=== PATIENT | female | born 1985 | race African-American/Black ===

== ENCOUNTER 2016-12-31 07:31 | Emergency (ER) | payer MEDICARE ==
[~2016-12-31] VITALS: Ht 149.9 cm; Wt 59.0 kg
[2016-12-31 07:35] VITALS: BP 130/76
[2016-12-31] MEDS ORDERED: HYDR-2666 PO (07:47)
[2016-12-31] MEDS ORDERED: PENI500T PO (07:47)
[2016-12-31] MEDS ORDERED: BENZ12SO MM (07:47)
--- NOTE | 2016-12-31 07:47 | PHYS DOC ---
Past Medical History Past Surgical History: Additional Past Surgical Histo: 4 C-sections Smoking: Cigarettes, Greater than 1 pack/day Alcohol Use: None Drug Use: None Adult General Chief Complaint Chief Complaint: DENTAL PROBLEM HPI HPI Patient is a pleasant 31-year-old otherwise healthy female with a three-hour history of tooth pain that began at rest. She has a history of dental caries in dentition problems secondary to fact she told the candy she's had prior root canal swelling the past and many fillings. Her pain is described as throbbing worse with movement of her jaw which is changed and increased with hot or cold foods. She denies any anterior neck swelling facial swelling or change in voice. She denies any trauma from speaking. Patient has had new or URI symptoms no fevers no chills no cough. She does several issue with a dentist but is looking for some symptomatically for her throbbing pain which she describes a 7 of 10 at this time. She is taking BC powders with mild improvement of her symptoms. Review of Systems Review of Systems Constitutional: Denies fever or chills [] Eyes: Denies change in visual acuity, redness, or eye pain [] HENT: Denies nasal congestion or sore throat [] Respiratory: Denies cough or shortness of breath [] Cardiovascular: No additional information not addressed in HPI [] Integument: Denies rash or skin lesions [] Neurologic: Denies headache, focal weakness or sensory changes [] Physical Exam Physical Exam Constitutional: Well developed, well nourished, uncomfortable but nontoxic in appearance HENT: Normocephalic, atraumatic, bilateral external ears normal, oropharynx moist, a status multiple areas of dental caries with significant enamel erosions to the occlusal surfaces as well as buccolingual services of each tooth. She significant soft tissue tenderness along the gumline supporting tooth #1415 with no obvious fluctuance patient is no buccal or lingual swelling or soft tissue signs of cellulitis. Oropharynx is otherwise clear no evidence of peritonsillar abscess [] Eyes: PERRLA, EOMI, conjunctiva normal, no discharge. [] Neck: Normal range of motion, no tenderness, supple, no stridor. [] Cardiovascular:Heart rate regular rhythm, no murmur [] Lungs & Thorax: Bilateral breath sounds clear to auscultation [] Skin: Warm, dry, no erythema, no rash. [] Neurologic: Alert and oriented X 3, normal motor function, EKG EKG [] Radiology/Procedures Radiology/Procedures [] Course & Med Decision Making Course & Med Decision Making Pertinent Labs and Imaging studies reviewed. (See chart for details) [Patient with clear evidence of dental caries and gingivitis without gingival inflammation or abscess. There are periapical abscess at this time given time course. Would recommend dental follow-up antibiotics and pain control patient I discussed duration of treatment and expected results. Patient's understands that dental evaluation and root canal isn't the only definitive management for this issue. Given precautions to return for increasing swelling inability to tolerate medications by mouth or she has no questionable concerns. Impression: Dental caries gingivitis Disposition discharged home dental follow-up provided Lortab, Penicillin VK, oral mouthwash] Derik Disclaimer Derik Disclaimer This electronic medical record was generated, in whole or in part, using a voice recognition dictation system. Departure Departure Impression: Primary Impression: Dental caries Additional Impression: Smoker Disposition: 01 HOME, SELF-CARE Condition: STABLE Referrals: ANAY PAN Jr DDS Patient Instructions: Dental Caries, Gingivitis Scripts Benzocaine (ORAL ANALGESIC) 12 Ml Solution 12 ML MM BID for 7 Days, MISC Prov: MARY COLÓN MD 12/31/16 Penicillin V Potassium (PENICILLIN V POTASSIUM) 500 Mg Tablet 1 TAB PO QID, #40 TAB Prov: MARY COLÓN MD 12/31/16 Hydrocodone Bit/Acetaminophen (HYDROCODONE-APAP 5-325 ) 1 Each Tablet 1 TAB PO PRN Q6HRS Y for PAIN for 7 Days, #14 TAB 0 Refills Prov: MARY COLÓN MD 12/31/16 Problem Qualifiers MARY COLÓN MD December 31, 2016 07:47
[2016-12-31] MEDS ORDERED: HYDROcodone/APAP 5/325MG 1 TAB TABLET PO ONE (08:30)
[2016-12-31] MEDS ORDERED: PENICILLIN V K 250 MG TABLET. PO ONE (08:30)
== END 2016-12-31 08:09 | disposition home or self-care (01) ==
LOC: ER 07:31
DX: K02.9 Dental caries, unspecified (principal); F17.210 Nicotine dependence, cigarettes, uncomplicated; K05.10 Chronic gingivitis, plaque induced
CPT/HCPCS: 99283